=== PATIENT | male | born 1970 | race Caucasian/White ===

== ENCOUNTER 2022-03-13 16:43 | Emergency (ER) | payer SELFPAY ==
[~2022-03-13] VITALS: Ht 154.9 cm; Wt 49.9 kg
[2022-03-13 17:21] VITALS: BP 146/101
--- NOTE | 2022-03-13 17:45 | NUR ---
PT AMBULATED TO BED STEADY.
--- NOTE | 2022-03-13 17:56 | NUR ---
51 y/o male, c/o abscess on right lower leg since yesterday. pt states he doesnt know how it happened, site appears red, edema around edges and swelling on lower leg anterior site. PT STATES WHEN WALKING THE PAIN IS SHARP AND IS A 8/10. AT REST THE PT STATES IT FEELS TINGLY WITH NO PAIN. PT DENIES ANY TRAUMA TO AREA. NO FEVER OR CHILLS. PT RESTING IN BED. pmh: dm2 allergy: penicillin med: denies
[2022-03-13] MEDS ORDERED: NACL 0.9% 1,000 ML IV SCH (19:05)
--- NOTE | 2022-03-13 19:09 | NUR ---
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
--- NOTE | 2022-03-13 19:16 | NUR ---
Pt report given to JAMSHID HAIDER. Transfer of care at this time.
--- NOTE | 2022-03-13 19:16 | NUR ---
transfer of care report recieved by VITALY Elizabeth
[2022-03-13 19:18] LABS: BASOPHILS % (AUTO) 0.2 % (0.0-2.0); EOSINOPHILS % (AUTO) 0.2 % (0.0-4.0); HEMATOCRIT 38.6 % (36-52); HEMOGLOBIN 13.1 g/dL (12.0-18.0); LYMPHOCYTES % (AUTO) 9.6 % (20.5-51.1); MEAN CORPUSCULAR HEMOGLOBIN 32 pg (27-31); MEAN CORPUSCULAR HGB CONC 34 g/dL (33-37); MEAN CORPUSCULAR VOLUME 93.1 fL (80-94); MONOCYTES # (AUTO) 0.6 K/uL (0.8-1.0); MONOCYTES % (AUTO) 6.1 % (1.7-9.3); NEUTROPHILS # (AUTO) 8.8 K/uL (1.8-7.7); NEUTROPHILS % (AUTO) 83.9 % (42.2-75.2); PLATELET COUNT (AUTO) 226 K/uL (140-450); RED BLOOD CELL COUNT(AUTO) 4.15 MIL/uL (4.20-6.10); WHITE BLOOD COUNT (AUTO) 10.5 K/uL (4.8-10.8)
--- NOTE | 2022-03-13 19:27 | NUR ---
xray at bedside
[2022-03-13 19:39] LABS: ALBUMIN 3.1 g/dL (3.4-5.0); ANION GAP 11.8 (8-16); CARBON DIOXIDE 27.9 mmol/L (21-32); CREATININE 0.9 mg/dL (0.6-1.3); POTASSIUM 4.7 mmol/L (3.5-5.1); TOTAL BILIRUBIN 0.3 mg/dL (0.0-1.0)
[2022-03-13] MEDS ORDERED: cephALEXin 500 MG CAP PO ONE (19:45)
[2022-03-13] MEDS ORDERED: SULFAMETH/TRIMETH DS 800/160MG 1 TAB PO ONE (19:45)
[2022-03-13] MEDS ORDERED: METF-564 PO (20:04)
[2022-03-13] MEDS ORDERED: IBUP-2213 PO (20:04)
[2022-03-13] MEDS ORDERED: SULF-59 PO (20:06)
[2022-03-13] MEDS ORDERED: CEPH-588 PO (20:06)
[2022-03-13] MEDS ORDERED: BACITRACIN OINT 500 UNITS/GM PKT TP ONE (20:20)
[2022-03-13 20:59] VITALS: BP 140/96
--- NOTE | 2022-03-13 21:03 | NUR ---
Patient discharged with v/s stable. Written and verbal after care instructions given and explained. Patient alert, oriented and verbalized understanding of instructions. Ambulatory with steady gait. All questions addressed prior to discharge. ID band removed. Patient advised to follow up with PMD. Rx of KEFLEX, GLUCOPHAGE, AND BACTRIM DS TABLET given. Patient educated on indication of medication including possible reaction and side effects. Opportunity to ask questions provided and answered. 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
== END 2022-03-13 21:03 | disposition home or self-care (01) ==
LOC: MED 16:43
DX: L03.115 Cellulitis of right lower limb (principal); E11.65 Type 2 diabetes mellitus with hyperglycemia; F17.210 Nicotine dependence, cigarettes, uncomplicated; F14.90 Cocaine use, unspecified, uncomplicated; Z88.0 Allergy status to penicillin; Z79.899 Other long term (current) drug therapy; Z79.84 Long term (current) use of oral hypoglycemic drugs
CPT/HCPCS: 36415; 73590; 80053; 83605; 85025; 87040; 90471; 90715; 96360; 99284; J7030; 96361

== ENCOUNTER 2022-03-15 17:25 | Emergency (ER) | payer MEDICAID ==
[~2022-03-15] VITALS: Ht 157.5 cm; Wt 49.4 kg
[~2022-03-15 17:25] MED LIST: CEPH-588 PO; IBUP-2213 PO; METF-564 PO; SULF-59 PO
[2022-03-15 17:31] VITALS: BP 123/83
--- NOTE | 2022-03-15 20:04 | NUR ---
Patient ambulated to bed 1.
--- NOTE | 2022-03-15 20:45 | NUR ---
PT HERE FOR R LOWER LEG WOUND RECHECK, PT STATES HE WAS HERE TWO DAYS AGO AND WAS INSTRUCTED TO COME BACK FOR RECHECK. PT CURRENTLY TAKING PO ANTIBIOTICS FOR DX OF R LEG CELLULITIS. PT DENIES ANY PAIN AT THIS MOMENT. PMH: DM CURRENT MEDICATIONS: KEFLEX, METFORMIN
[2022-03-15 23:04] VITALS: BP 123/83
--- NOTE | 2022-03-15 23:05 | NUR ---
Patient discharged with v/s stable. Written and verbal after care instructions given and explained. Patient verbalized understanding. Ambulatory with to car. All questions addressed prior to discharge. Advised to follow up with PMD.
== END 2022-03-15 23:05 | disposition home or self-care (01) ==
LOC: MED 17:25
DX: L03.115 Cellulitis of right lower limb (principal); Z48.00 Encounter for change or removal of nonsurgical wound dressing; E11.9 Type 2 diabetes mellitus without complications; Z79.2 Long term (current) use of antibiotics; Z79.1 Long term (current) use of non-steroidal anti-inflammatories (NSAID); Z79.899 Other long term (current) drug therapy; Z88.0 Allergy status to penicillin
CPT/HCPCS: 99282

== ENCOUNTER 2022-12-14 11:55 | Emergency (ER) | payer SELFPAY ==
[~2022-12-14] VITALS: Ht 154.9 cm; Wt 54.4 kg
[~2022-12-14 11:55] MED LIST changes: +METF-346 PO; -METF-564 PO
[2022-12-14 11:58] VITALS: BP 155/60
--- NOTE | 2022-12-14 12:00 | NUR ---
52 y/o male biba from [facility], c/o palpitations after meth use this morning. A&OX4, AMBULATORY WITH STEADY GAIT. PT DID NOT COME WITH SHIRT ON, SCRUB TOP GIVEN. pmh: illicit drug use allergy: penicillin med: denies
[2022-12-14 13:20] LABS: BARBITURATE, URINE NEGATIVE ng/ml (NEG <=200); BENZODIAZEPINE, URINE NEGATIVE ng/mL (NEG <=200); CANNABINOID, URINE NEGATIVE ng/mL (NEG <=50); COCAINE, URINE POSITIVE ng/mL (NEG <=300); OPIATE, URINE NEGATIVE ng/mL (NEG <=2000); PHENCYCLIDINE SCREEN,URINE NEGATIVE ng/mL (NEG <=25)
[2022-12-14 13:22] LABS: BASOPHILS % (AUTO) 0.3 % (0.0-2.0); EOSINOPHILS % (AUTO) 0.1 % (0.0-4.0); HEMATOCRIT 39.7 % (36-52); HEMOGLOBIN 13.2 g/dL (12.0-18.0); LYMPHOCYTES # (AUTO) 0.8 K/uL (2.0-11.5); LYMPHOCYTES % (AUTO) 14.7 % (20.5-51.1); MEAN CORPUSCULAR HEMOGLOBIN 31 pg (27-31); MEAN CORPUSCULAR HGB CONC 33 g/dL (33-37); MEAN CORPUSCULAR VOLUME 91.8 fL (80-94); MONOCYTES # (AUTO) 0.5 K/uL (0.8-1.0); MONOCYTES % (AUTO) 8.1 % (1.7-9.3); NEUTROPHILS # (AUTO) 4.3 K/uL (1.8-7.7); NEUTROPHILS % (AUTO) 76.8 % (42.2-75.2); PLATELET COUNT (AUTO) 226 K/uL (140-450); RED BLOOD CELL COUNT(AUTO) 4.33 MIL/uL (4.20-6.10); RED CELL DISTRIBUTION WIDTH 13.2 % (11.6-13.7); WHITE BLOOD COUNT (AUTO) 5.6 K/uL (4.8-10.8)
[2022-12-14 13:59] LABS: ANION GAP 16.4 (8-16); CARBON DIOXIDE 27.2 mmol/L (21-32); CREATININE 0.7 mg/dL (0.6-1.3); POTASSIUM 3.6 mmol/L (3.5-5.1)
--- NOTE | 2022-12-14 15:13 | NUR ---
LAB CALLED IN LOBBY, NO ANSWER
[2022-12-14 15:15] VITALS: BP 155/60
--- NOTE | 2022-12-14 15:15 | NUR ---
PATIENT LEFT WITHOUT BEING SEEN BY DR. FIELDS. NO FURTHER CARE PROVIDED FOR PATIENT.
== END 2022-12-14 15:15 | disposition left against medical advice (07) ==
LOC: MED 11:55
DX: R00.2 Palpitations (principal); F15.90 Other stimulant use, unspecified, uncomplicated; R07.89 Other chest pain; E11.9 Type 2 diabetes mellitus without complications; Z79.84 Long term (current) use of oral hypoglycemic drugs; Z88.0 Allergy status to penicillin; Z79.899 Other long term (current) drug therapy
CPT/HCPCS: 36415; 80048; 80305; 84484; 85025; 99283

== ENCOUNTER 2023-02-16 14:25 | Emergency (ER) | payer SELFPAY ==
[~2023-02-16] VITALS: Ht 154.9 cm; Wt 56.7 kg
[2023-02-16 15:06] VITALS: BP 120/77
[2023-02-16] MEDS ORDERED: SULF-59 PO (17:30)
[2023-02-16] MEDS ORDERED: CEPH-588 PO (17:30)
[2023-02-16 18:22] VITALS: BP 151/90
--- NOTE | 2023-02-16 18:22 | NUR ---
Patient discharged with v/s stable. Written and verbal after care instructions given. Patient alert, oriented and verbalized understanding of instructions. Ambulatory with steady gait. All questions addressed prior to discharge. ID band removed. Patient advised to follow up with PMD. Rx of KEFLEX AND BACTRIM DS given. Opportunity to ask questions provided and answered.
== END 2023-02-16 18:22 | disposition home or self-care (01) ==
LOC: MED 14:25
DX: L03.116 Cellulitis of left lower limb (principal); E11.9 Type 2 diabetes mellitus without complications; Z79.4 Long term (current) use of insulin; Z79.899 Other long term (current) drug therapy
CPT/HCPCS: 99283

== ENCOUNTER 2023-02-21 09:41 | Inpatient (IN) | payer MEDICAID ==
[~2023-02-21] VITALS: Ht 154.9 cm; Wt 54.9 kg
--- NOTE | 2023-02-21 09:49 | NUR ---
PT MOVED TO BED 11
[2023-02-21 09:53] VITALS: BP 145/98
--- NOTE | 2023-02-21 10:01 | NUR ---
52 years old male presents to er for left leg wound check no improvement with home antibiotic.
[2023-02-21] MEDS ORDERED: NACL 0.9% 1,000 ML IV ONE (10:25)
[2023-02-21 10:47] LABS: BASOPHILS % (AUTO) 0.3 % (0.0-2.0); EOSINOPHILS # (AUTO) 0.1 K/uL (0-0.4); EOSINOPHILS % (AUTO) 1.1 % (0.0-4.0); HEMATOCRIT 39.1 % (36-52); LYMPHOCYTES # (AUTO) 1.1 K/uL (2.0-11.5); LYMPHOCYTES % (AUTO) 23.9 % (20.5-51.1); MEAN CORPUSCULAR HEMOGLOBIN 31 pg (27-31); MEAN CORPUSCULAR HGB CONC 33 g/dL (33-37); MEAN CORPUSCULAR VOLUME 92.3 fL (80-94); MONOCYTES # (AUTO) 0.2 K/uL (0.8-1.0); MONOCYTES % (AUTO) 5.2 % (1.7-9.3); NEUTROPHILS # (AUTO) 3.2 K/uL (1.8-7.7); NEUTROPHILS % (AUTO) 69.5 % (42.2-75.2); PLATELET COUNT (AUTO) 254 K/uL (140-450); RED BLOOD CELL COUNT(AUTO) 4.24 MIL/uL (4.20-6.10); RED CELL DISTRIBUTION WIDTH 13.9 % (11.6-13.7); WHITE BLOOD COUNT (AUTO) 4.6 K/uL (4.8-10.8)
[2023-02-21 11:09] LABS: ALBUMIN 2.9 g/dL (3.4-5.0); ANION GAP 13.6 (8-16); CARBON DIOXIDE 25.5 mmol/L (21-32); CREATININE 1.5 mg/dL (0.6-1.3); POTASSIUM 5.1 mmol/L (3.5-5.1); TOTAL BILIRUBIN 0.2 mg/dL (0.0-1.0)
[2023-02-21] MEDS ORDERED: INSULIN REGULAR, HUMAN 100 UNIT/ML VIAL IV ONE (11:15)
[2023-02-21] MEDS ORDERED: VANCOMYCIN 1,000 MG in DEXTROSE 5% 250 ML IV ONE (11:15)
[2023-02-21] MEDS ORDERED: VANCOMYCIN PER PHARMACY MC PRN (11:20)
[2023-02-21] MEDS ORDERED: LORazepam 2 MG/ML VIAL IVP PRN (11:25)
[2023-02-21] MEDS ORDERED: MAG SULF 2000 MG/WATER PREMIX 50 ML IV PRN (11:25)
[2023-02-21] MEDS ORDERED: ZOLPIDEM 10 MG TAB PO PRN (11:25)
[2023-02-21] MEDS ORDERED: DEXTROSE 50% 50 ML SYR IVP PRN (11:25)
[2023-02-21] MEDS ORDERED: ACETAMINOPHEN 325 MG TAB PO PRN (11:25)
[2023-02-21] MEDS ORDERED: POTASSIUM CHLORIDE 10 MEQ TABER PO PRN (11:25)
[2023-02-21] MEDS ORDERED: MORPHINE SULFATE 2 MG/ML SYR IVP PRN (11:25)
[2023-02-21] MEDS ORDERED: ONDANSETRON 4 MG/2 ML VIAL IVP PRN (11:25)
[2023-02-21] MEDS ORDERED: DOCUSATE SODIUM 100 MG GELCAP PO PRN (11:25)
--- NOTE | 2023-02-21 11:36 | NUR ---
PT MOVED TO BED 08
[2023-02-21] MEDS ORDERED: VANCOMYCIN 1,000 MG VIAL ONE (11:45)
[2023-02-21] MEDS: BLOOD GLUCOSE MONITORING 1 DEV DEV FS SCH ×3 (11:51→21:31)
[2023-02-21] MEDS: INSULIN LANTUS 100 UNITS/ML 10 ML VIAL SUBQ SCH (11:58)
[2023-02-21 12:06] LABS: APPEARANCE,URINE CLEAR (CLEAR); BILIRUBIN,URINE NEGATIVE (NEGATIVE); BLOOD, URINE NEGATIVE (NEGATIVE); COLOR,URINE YELLOW (YELLOW); LEUKOCYTE ESTERASE ,URINE NEGATIVE (NEGATIVE); NITRITE, URINE NEGATIVE (NEGATIVE); UGLUCOSE 3+ (NEGATIVE)
[2023-02-21] MEDS ORDERED: PIPERACILLIN/TAZOBACTAM 3.375 GM VIAL IV ONE (14:08)
[2023-02-21] MEDS: PIPERACILLIN/TAZOBACTAM 3.375 GM in DEXTROSE 5% 50 ML IV SCH ×2 (14:43→21:21)
--- NOTE | 2023-02-21 14:45 | NUR ---
Patient ambulated to restroom with steady gait.
--- NOTE | 2023-02-21 15:32 | NUR ---
Patient will be admitted to care of DR. SMYTH. Admited to MED SURG. Will go to room 112-B. Belongings list completed. Report to VITALY NICOLE.
--- NOTE | 2023-02-21 15:33 | NUR ---
The patient's care was reviewed and supervised by Sandrita Emmanuel, RN, RN.
[2023-02-21 15:50] VITALS: BP 129/91
[2023-02-21] MEDS: INSULIN LISPRO SLIDING SCALE 100 UNITS/ML VIAL SUBQ PRN ×2 (17:38→21:32)
--- NOTE | 2023-02-21 20:10 | NUR ---
PATIENT AWAKE ALERT RESTING COMFORTABLY IN BED. NO SOB NOTED. BREATHING REGULAR NON LABORED. NO COMPLAINTS OF PAIN. IV SITE TO RIGHT FOREARM 20 GAUGE SALINE LOCK. CALL LIGHT WITHIN REACH. SAFETY MEASURES IN PLACE.
--- NOTE | 2023-02-21 21:21 | NUR ---
ADMINISTERED SCHEDULED DUE MEDICATION.
[2023-02-22] VITALS: BP 127/85
[2023-02-22] MEDS: PIPERACILLIN/TAZOBACTAM 3.375 GM in DEXTROSE 5% 50 ML IV SCH ×3 (04:14→21:31)
[2023-02-22 06:25] LABS: BASOPHILS % (AUTO) 0.4 % (0.0-2.0); EOSINOPHILS # (AUTO) 0.1 K/uL (0-0.4); EOSINOPHILS % (AUTO) 2.1 % (0.0-4.0); HEMOGLOBIN 12.3 g/dL (12.0-18.0); LYMPHOCYTES # (AUTO) 1.9 K/uL (2.0-11.5); LYMPHOCYTES % (AUTO) 35.6 % (20.5-51.1); MEAN CORPUSCULAR HEMOGLOBIN 31 pg (27-31); MEAN CORPUSCULAR HGB CONC 33 g/dL (33-37); MEAN CORPUSCULAR VOLUME 92.6 fL (80-94); MONOCYTES # (AUTO) 0.4 K/uL (0.8-1.0); MONOCYTES % (AUTO) 7.1 % (1.7-9.3); NEUTROPHILS % (AUTO) 54.8 % (42.2-75.2); PLATELET COUNT (AUTO) 249 K/uL (140-450); RED BLOOD CELL COUNT(AUTO) 3.99 MIL/uL (4.20-6.10); RED CELL DISTRIBUTION WIDTH 13.7 % (11.6-13.7); WHITE BLOOD COUNT (AUTO) 5.4 K/uL (4.8-10.8)
[2023-02-22 06:42] LABS: ANION GAP 14.1 (8-16); CARBON DIOXIDE 23.6 mmol/L (21-32); CREATININE 0.8 mg/dL (0.6-1.3); POTASSIUM 3.7 mmol/L (3.5-5.1)
[2023-02-22] MEDS: BLOOD GLUCOSE MONITORING 1 DEV DEV FS SCH ×4 (06:51→21:36)
[2023-02-22] MEDS: INSULIN LISPRO SLIDING SCALE 100 UNITS/ML VIAL SUBQ PRN ×3 (06:52→21:38)
--- NOTE | 2023-02-22 07:27 | NUR ---
ENDORSED PATIENT TO DAY SHIFT NURSE FOR CONTINUITY OF CARE. PATIENT STABLE.
[2023-02-22 08:00] VITALS: BP 118/83
--- NOTE | 2023-02-22 09:15 | NUR ---
PATIENT HAS BEEN SCREENED AND CATEGORIZED MODERATE NUTRITION RISK. PATIENT WILL BE SEEN WITHIN 3-5 DAYS OF ADMISSION. 02/21/23-02/26/[address]
[2023-02-22] MEDS: INSULIN LANTUS 100 UNITS/ML 10 ML VIAL SUBQ SCH (09:35)
[2023-02-22] MEDS: VANCOMYCIN 750 MG in DEXTROSE 5% 250 ML IV SCH ×2 (10:35→22:00)
[2023-02-22 16:00] VITALS: BP 125/86
--- NOTE | 2023-02-22 21:31 | NUR ---
SCHEDULED MEDICATIONS DUE ADMINISTERED. PATIENT AWAKE ALERT RESTING IN BED. NO SOB NOTED ON ROOM AIR. ABLE TO COMMUNICATE WITH HIS NEEDS. NO COMPLAINTS OF PAIN. AFEBRILE. NEEDS ATTENDED TO. CALL LIGHT WITHIN REACH. AMBULATORY.
[2023-02-23] VITALS: BP 128/94
[2023-02-23] MEDS: PIPERACILLIN/TAZOBACTAM 3.375 GM in DEXTROSE 5% 50 ML IV SCH ×2 (04:37→13:04)
[2023-02-23] MEDS: BLOOD GLUCOSE MONITORING 1 DEV DEV FS SCH ×2 (06:45→11:30)
[2023-02-23] MEDS: INSULIN LISPRO SLIDING SCALE 100 UNITS/ML VIAL SUBQ PRN ×2 (06:45→12:41)
[2023-02-23 07:03] LABS: BASOPHILS % (AUTO) 0.5 % (0.0-2.0); EOSINOPHILS # (AUTO) 0.1 K/uL (0-0.4); EOSINOPHILS % (AUTO) 0.9 % (0.0-4.0); HEMATOCRIT 39.7 % (36-52); LYMPHOCYTES # (AUTO) 1.6 K/uL (2.0-11.5); LYMPHOCYTES % (AUTO) 27.1 % (20.5-51.1); MEAN CORPUSCULAR HEMOGLOBIN 31 pg (27-31); MEAN CORPUSCULAR HGB CONC 33 g/dL (33-37); MEAN CORPUSCULAR VOLUME 93.5 fL (80-94); MONOCYTES # (AUTO) 0.4 K/uL (0.8-1.0); MONOCYTES % (AUTO) 6.1 % (1.7-9.3); NEUTROPHILS # (AUTO) 3.9 K/uL (1.8-7.7); NEUTROPHILS % (AUTO) 65.4 % (42.2-75.2); PLATELET COUNT (AUTO) 273 K/uL (140-450); RED BLOOD CELL COUNT(AUTO) 4.24 MIL/uL (4.20-6.10); RED CELL DISTRIBUTION WIDTH 13.7 % (11.6-13.7); WHITE BLOOD COUNT (AUTO) 5.9 K/uL (4.8-10.8)
[2023-02-23 07:07] LABS: ANION GAP 11.6 (8-16); CARBON DIOXIDE 25.9 mmol/L (21-32); CREATININE 0.8 mg/dL (0.6-1.3); POTASSIUM 4.5 mmol/L (3.5-5.1)
--- NOTE | 2023-02-23 07:30 | NUR ---
ALL NEEDS ATTENDED AND MET THROUGHOUT THE SHIFT. ENDORSED TO DAY SHIFT NURSE FOR CONTINUITY OF CARE. PATIENT STABLE.
[2023-02-23 08:00] VITALS: BP 110/78
[2023-02-23] MEDS: INSULIN LANTUS 100 UNITS/ML 10 ML VIAL SUBQ SCH (09:51)
[2023-02-23] MEDS: VANCOMYCIN 750 MG in DEXTROSE 5% 250 ML IV SCH (10:07)
--- NOTE | 2023-02-23 11:05 | NUR ---
PER CHARGE NURSE TETO'S REQUEST. LLE WOUND ASSESSED. LLE CELLULITIS NO OPEN WOUND STABLE DRY SCABS , NO PAIN, POC DISCUSSED WITH PT. WITH WOUND CARE TEACHING DONE. PT. VERBALIZES UNDERSTANDING. RECOMMEND: LLE SCABS PAINTS WITH BETADINE SOLUTION AND COVER WITH BANDAGE DAILY.
--- NOTE | 2023-02-23 11:17 | NUR ---
FOLLOW UP PCP APPOINTMENT MADE WITH [facility] LOCATED AT [address] [place], [place] [id number]. SPOKE WITH ANTHONY WHO WAS ABLE TO HELP ME MAKE AN APPOINTMENT FOR 02/25/2023 AT 1445. WENT TO PATENTS ROOM AND HE IS AWARE OF THE APPOINTMENT.
[2023-02-23] MEDS ORDERED: AMOX-999 PO (12:33)
[2023-02-23] MEDS ORDERED: METF-346 PO (12:33)
[2023-02-23] MEDS ORDERED: GAUZE TP SCH (13:00)
[2023-02-23 13:54] VITALS: BP 110/78
--- NOTE | 2023-02-23 15:05 | NUR ---
DISCHARGE PATIENT PER PCP ORDER, DISCHARGE INSTRUCTION GIVE, DISCHARGE CONSENT SIGN, IV ACCESS & WRIST BAND REMOVE BEFORE PATIENT WALK OUT THE FACILITY. PATIENT AWARE WHICH PHARMACY HAS HIS PRESCRIPTION, AND HE NEEDS TO REPORT TO HIS MD OFFICE TOMORROW FOLLOW UP FOR HIS L.LOWER EXTREMITY CELLULITIS.
== END 2023-02-23 15:00 | disposition home or self-care (01) | DRG 383 ==
LOC: MED 09:41 → MMU 11:21 → MTU 15:03
PROVIDERS: ADMIT Family Medicine; ATTEND Family Medicine
DX: L03.116 Cellulitis of left lower limb (principal); N17.0 Acute kidney failure with tubular necrosis; E44.0 Moderate protein-calorie malnutrition; R74.01 Elevation of levels of liver transaminase levels; Z20.822 Contact with and (suspected) exposure to COVID-19; E11.65 Type 2 diabetes mellitus with hyperglycemia; Z79.2 Long term (current) use of antibiotics; Z79.1 Long term (current) use of non-steroidal anti-inflammatories (NSAID); Z79.899 Other long term (current) drug therapy; Z68.22 Body mass index [BMI] 22.0-22.9, adult
CPT/HCPCS: 36415; 73590; 76881; 80048; 80053; 81003; 82009; 82948; 83735; 85025; 85651; 86140; 87040; 87081; 99285; J1815; J2543; J3370; J3475; J7060; Q0092

== ENCOUNTER 2023-02-25 16:56 | Emergency (ER) | payer MEDICAID ==
[~2023-02-25] VITALS: Ht 154.9 cm; Wt 54.4 kg
[~2023-02-25 16:56] MED LIST changes: +AMOX-999 PO; -CEPH-588 PO; -SULF-59 PO
[2023-02-25 17:10] VITALS: BP 121/58
--- NOTE | 2023-02-25 17:15 | NUR ---
SENT TO [facility]
[2023-02-25 18:41] VITALS: BP 121/58
--- NOTE | 2023-02-25 18:42 | NUR ---
Patient discharged with v/s stable. Written and verbal after care instructions given and explained. Patient verbalized understanding. Ambulatory with steady gait. All questions addressed prior to discharge. Advised to follow up with PMD.
== END 2023-02-25 18:41 | disposition home or self-care (01) ==
LOC: MED 16:56
DX: L03.116 Cellulitis of left lower limb (principal); E11.9 Type 2 diabetes mellitus without complications; Z98.890 Other specified postprocedural states; Z79.899 Other long term (current) drug therapy; Z79.2 Long term (current) use of antibiotics; Z79.1 Long term (current) use of non-steroidal anti-inflammatories (NSAID)
CPT/HCPCS: 99284

== ENCOUNTER 2023-08-19 05:00 | Emergency (ER) | payer MEDICAID ==
[~2023-08-19] VITALS: Ht 154.9 cm; Wt 51.7 kg
[2023-08-19 05:47] VITALS: BP 117/99; PULSE 98; RESP 15; TEMP 98.5; O2SAT 95
[2023-08-19] MEDS ORDERED: METF-346 PO (07:54)
[2023-08-19] MEDS ORDERED: IBUP-2213 PO (07:54)
[2023-08-19 08:15] VITALS: BP 121/99; PULSE 85; RESP 15; TEMP 98; O2SAT 99
== END 2023-08-19 08:15 | disposition home or self-care (01) ==
LOC: MED 05:00
DX: E11.65 Type 2 diabetes mellitus with hyperglycemia (principal); Z76.0 Encounter for issue of repeat prescription; Z79.4 Long term (current) use of insulin; Z79.899 Other long term (current) drug therapy
CPT/HCPCS: 99281

== ENCOUNTER 2023-09-20 13:10 | Emergency (ER) | payer MEDICAID ==
[~2023-09-20] VITALS: Ht 154.9 cm; Wt 50.8 kg
[2023-09-20 13:33] VITALS: BP 156/107; PULSE 107; RESP 20; TEMP 98.1; O2SAT 100
[2023-09-20] MEDS ORDERED: metFORMIN 500 MG TAB PO SCH (13:50)
[2023-09-20] MEDS ORDERED: METF-346 PO (13:52)
[2023-09-20 14:07] VITALS: BP 145/99; PULSE 88; RESP 20; TEMP 98.1; O2SAT 100
== END 2023-09-20 14:07 | disposition home or self-care (01) ==
LOC: MED 13:10
DX: E11.9 Type 2 diabetes mellitus without complications (principal); Z76.0 Encounter for issue of repeat prescription; I10 Essential (primary) hypertension; Z79.899 Other long term (current) drug therapy; Z79.1 Long term (current) use of non-steroidal anti-inflammatories (NSAID); Z79.2 Long term (current) use of antibiotics
CPT/HCPCS: 82948; 99282

== ENCOUNTER 2024-08-18 19:33 | Emergency (ER) | payer MEDICAID | END 2024-08-18 19:35 | disposition left against medical advice (07) | LOC: MED 19:33 | DX: Z02.89 Encounter for other administrative examinations (principal); Z53.21 Procedure and treatment not carried out due to patient leaving prior to being seen by health care provider ==